=== PATIENT | male | born 1960 | race Caucasian/White ===

== ENCOUNTER 2018-01-29 22:02 | Emergency (ER) | payer OTHER ==
--- NOTE | 2018-01-29 22:24 | EDM.PDOC ---
ED HPI GENERAL MEDICAL PROBLEM - General Chief Complaint: ENT Problem Stated Complaint: [id number] TURKEY BONE STUCK IN THROAT Time Seen by Provider: 01/29/18 22:10 Source of Information: Reports: Patient, RN, RN Notes Reviewed History Limitations: Reports: No Limitations - History of Present Illness INITIAL COMMENTS - FREE TEXT/NARRATIVE: Pt presents to the ER with c/o a turkey bone stuck in his throat. Patient states he was at home eating home made turkey soup when he accidentally swallowed a turkey bone. Patient's head is tilted downward with chin near the chest, reporting this is the most comfortable position for him. He is also spitting in a bag as he cannot swallow his saliva. Onset: Today, Sudden Throat Pain Score (Numeric/FACES): 3 - Related Data Allergies Allergy/AdvReac Type Severity Reaction Status Date / Time seasonal allergies Allergy Mild Itching Uncoded 11/29/15 12:29 Home Meds: Home Meds Insulin Aspart [NovoLOG] 20 units SUBCUT WITHMEALSANDBED 01/29/18 [History] Insulin Lispro [HumaLOG] 15 units SUBCUT WITHMEALSANDBED 01/29/18 [History] Past Medical History Cardiovascular History: Reports: High Cholesterol Respiratory History: Reports: Bronchitis, Recurrent Gastrointestinal History: Reports: Pancreatitis Musculoskeletal History: Reports: Arthritis Endocrine/Metabolic History: Reports: Diabetes, Type II, Vitamin D Deficiency - Infectious Disease History Infectious Disease History: Reports: Chicken Pox, Measles, Mumps - Past Surgical History GI Surgical History: Reports: Cholecystectomy, Colostomy, EGD Social & Family History - Family History Cardiac: Reports: Hypertension, Other (See Below) Other Cardiac Family History: hx family heart disease Respiratory: Reports: COPD Endocrine/Metabolic: Reports: Diabetes, type II Other Endocrine/Metabolic Family History: both mother and father had DM - as well as several aunts/uncles Oncologic: Reports: Other (See Below) Other Oncologic Family History: father had liver cancer / sinus cancer?? - Tobacco Use Smoking Status *Q: Never Smoker Second Hand Smoke Exposure: No - Caffeine Use Caffeine Use: Reports: Coffee - Recreational Drug Use Recreational Drug Use: No ED ROS ENT - Review of Systems Review Of Systems: ROS reveals no pertinent complaints other than HPI. ED EXAM, ENT - Physical Exam Exam: See Below Exam Limited By: No Limitations General Appearance: Alert, WD/WN, Moderate Distress Eye Exam: Bilateral Eye: EOMI, Normal Inspection Ears: Normal External Exam, Hearing Grossly Normal Nose: Normal Inspection Mouth/Throat: Other (unable to inspect due to the position and comfort of the patient. Patient is spitting blood tinged saliva. ) Head: Atraumatic, Normocephalic Neck: Normal Inspection, Limited Range of Motion (Chin to chest position) Respiratory/Chest: Lungs Clear, Normal Breath Sounds, No Accessory Muscle Use, Chest Non-Tender, Respiratory Distress Cardiovascular: Normal Peripheral Pulses, Regular Rate, Rhythm, No Edema, No Gallop, No JVD, No Murmur, No Rub GI/Abdominal: Normal Bowel Sounds, Soft, Non-Tender, No Organomegaly, No Distention, No Abnormal Bruit, No Mass, Pelvis Stable (Male) Exam: Deferred Rectal (Males) Exam: Deferred Back: Normal Inspection, Full Range of Motion Neurological: Alert, Oriented, CN II-XII Intact, Normal Cognition, Normal Gait, Normal Reflexes, No Motor/Sensory Deficits Psychiatric: Anxious Skin: Warm, Dry, Intact, Normal Color, No Rash Lymphatic: No Adenopathy Course - Vital Signs Last Recorded V/S: Last Vital Signs Temp 98.8 F 01/30/18 00:40 Pulse 102 H 01/30/18 00:59 Resp 14 01/30/18 00:59 BP 136/78 01/30/18 00:59 Pulse Ox 96 01/30/18 00:59 - Orders/Labs/Meds Meds: Medications Discontinued Medications Generic Name Dose Route Start Last Admin Trade Name Freq PRN Reason Stop Dose Admin Benzocaine Confirm 01/29/18 23:48 Hurricaine 20% Rea Administered 01/29/18 23:49 Dose 59.2 ml .ROUTE .STK-MED ONE Lactated Ringer's 1,000 mls @ 999 mls/hr 01/29/18 23:28 01/29/18 23:31 Ringers, Lactated IV 01/30/18 00:28 999 mls/hr .BOLUS ONE Administration - Radiology Interpretation Free Text/Narrative:: Chest xray: IMPRESSION: No acute findings. Thank you for allowing us to participate in the care of your patient. Dictated and Authenticated by: Uriel Champagne MD 01/29/2018 10:53 PM Central Time ([place] & [place]) Soft Tissue Neck: IMPRESSION: 2.5 cm increased density in the mid prevertebral soft tissues. Unclear if this represents foreign body or mildly prominent mucosal shadow. Consider CT neck to further evaluate Thank you for allowing us to participate in the care of your patient. Dictated and Authenticated by: Uriel Champagne MD 01/29/2018 10:58 PM Central Time ([place] & [place]) See Rad report - Re-Assessments/Exams Free Text/Narrative Re-Assessment/Exam: 01/29/18 23:01 Dr. Gallardo was consulted for the patient. Dr. Gallardo came in and saw the patient and is taking him for an EGD. 01/30/18 01:[address] Gallardo. Dr. Gallardo feels the patient is stable to be discharged home at this time. Departure - Departure Time of Disposition: 01:05 Disposition: Home, Self-Care 01 Condition: Fair Clinical Impression: Feeling of foreign body in throat - Discharge Information Instructions: Swallowed Foreign Body, Adult, [id number] Forms: ED Department Discharge Additional Instructions: Follow up with your primary care facility
[2018-01-29] MEDS ORDERED: Lactated Ringers 1,000 ML IV ONE (23:28)
[2018-01-29] MEDS ORDERED: Benzocaine 20% Oral Spray 59.2 ML Canister MUCMEM ONE (23:45)
[2018-01-29] MEDS ORDERED: Benzocaine 20% Oral Spray 59.2 ML Canister ONE (23:48)
[2018-01-30 01:13] VITALS: BP 131/69
--- NOTE | 2018-01-30 04:26 | OR ---
DATE: 01/29/2018 PREOPERATIVE DIAGNOSIS: Dysphagia with possible esophageal foreign body. POSTOPERATIVE DIAGNOSIS: Dysphagia with possible esophageal foreign body. PROCEDURE: EGD. ANESTHESIA: MAC. SPECIMEN: None. OPERATIVE FINDINGS: He had a foreign body stuck and it had passed into the stomach. I did not find any evidence of blockage either in the hypopharynx, trachea, or esophagus. RECOMMENDATION: Follow up as needed. INDICATION FOR PROCEDURE: This 57-year-old male presented to the emergency room after complaining of inability to swallow even saliva. He feels like something is caught in the neck region. He was eating some sort of chicken stew and feels like he swallowed a bone. Plain x-ray of the neck and chest did not reveal any calcification within the esophagus or stomach. I observed the patient for a while and he really was unable to swallow saliva and had to spit it out into a bag. The risks, benefits, and expected outcomes of an EGD were discussed with him. DESCRIPTION OF PROCEDURE: After adequate preparation, a gastroscope was inserted into the oral cavity looking around in the posterior oral cavity and hypopharynx. I did not find any evidence of obstructing particles. The scope easily went through the cricopharyngeus into the esophagus and this was passed all the way down to the distal esophagus with no evidence of obstructing foreign body. The scope was advanced through the lower esophageal sphincter into the stomach. Both forward and retroflexed views were done and are normal. The contents of the stomach showed a moderate amount of liquid material consistent with the soup he claimed to be eating. On withdrawal of the scope, a good examination of the esophagus was again done. The patient, however, when the scope got into the hypopharynx area, seemed to go into some laryngeal spasm. The scope was completely withdrawn and Anesthesia monitored him for a while. One more attempt with the scope was done and this was again easily passed through the hypopharynx into the esophagus and no obstructing lesion or mass lesions were noted. The patient was taken to recovery room. [facility] /[id number]
== END 2018-01-30 01:33 | disposition home or self-care (01) ==
LOC: DL.ED 22:02
DX: R09.89 Other specified symptoms and signs involving the circulatory and respiratory systems (principal); E11.9 Type 2 diabetes mellitus without complications; Z91.09 Other allergy status, other than to drugs and biological substances
CPT/HCPCS: 70360; 71046; 96360; 99284; J7120

== ENCOUNTER 2018-06-30 14:05 | Emergency (ER) | payer OTHER ==
[2018-06-30 14:10] VITALS: BP 134/87
--- NOTE | 2018-06-30 15:22 | EDM.PDOC ---
ED HPI GENERAL MEDICAL PROBLEM - General Chief Complaint: Gastrointestinal Problem Stated Complaint: Pancreatitis [id number] Time Seen by Provider: 06/30/18 15:22 Source of Information: Reports: Patient, RN, RN Notes Reviewed History Limitations: Reports: No Limitations - History of Present Illness INITIAL COMMENTS - FREE TEXT/NARRATIVE: Patient presents to ER with complaint of epigastric, abdominal and midline chest pain that began Saturday, June 29. Initially the symptoms were intermittent, but returned yesterday and became severe and persistent throughout most of the day. Today he states the symptoms have been persistent but not as severe. Denies radiating pain, shortness of breath, cough, fevers, or chills, nausea or vomiting. Denies any change in bowel habits or urinary habits. Patient states symptoms are very similar to past pancreatitis. Location: Reports: Chest, Abdomen Quality: Reports: Ache, Burning Severity: Moderate Improves with: Reports: None Worsens with: Reports: None Associated Symptoms: Reports: No Other Symptoms Middle Chest Pain Score (Numeric/FACES): 3 - Related Data Allergies Allergy/AdvReac Type Severity Reaction Status Date / Time seasonal allergies Allergy Mild Itching Uncoded 06/30/18 14:07 Home Meds: Home Meds Insulin Aspart [NovoLOG] 20 units SUBCUT WITHMEALSANDBED 01/29/18 [History] Insulin Lispro [HumaLOG] 15 units SUBCUT WITHMEALSANDBED 01/29/18 [History] Past Medical History HEENT History: Reports: Impaired Vision Cardiovascular History: Reports: High Cholesterol Respiratory History: Reports: Bronchitis, Recurrent Gastrointestinal History: Reports: Pancreatitis Musculoskeletal History: Reports: Arthritis Endocrine/Metabolic History: Reports: Diabetes, Type II, Vitamin D Deficiency - Infectious Disease History Infectious Disease History: Reports: Chicken Pox, Measles, Mumps - Past Surgical History GI Surgical History: Reports: Cholecystectomy, Colostomy, EGD Social & Family History - Family History Family Medical History: Noncontributory Cardiac: Reports: Hypertension, Other (See Below) Other Cardiac Family History: hx family heart disease Respiratory: Reports: COPD Endocrine/Metabolic: Reports: Diabetes, type II Other Endocrine/Metabolic Family History: both mother and father had DM - as well as several aunts/uncles Oncologic: Reports: Other (See Below) Other Oncologic Family History: father had liver cancer / sinus cancer?? - Tobacco Use Smoking Status *Q: Never Smoker - Caffeine Use Caffeine Use: Reports: Coffee, Energy Drinks, Soda, Tea - Recreational Drug Use Recreational Drug Use: No ED ROS GENERAL - Review of Systems Review Of Systems: ROS reveals no pertinent complaints other than HPI. ED EXAM, GI/ABD - Physical Exam Exam: See Below Exam Limited By: No Limitations General Appearance: Alert, WD/WN, No Apparent Distress Eyes: Bilateral: Normal Appearance Nose: Normal Inspection, Normal Mucosa, No Blood Throat/Mouth: Normal Inspection, Normal Lips, Normal Teeth, Normal Gums, Normal Oropharynx, Normal Voice, No Airway Compromise Head: Atraumatic, Normocephalic Neck: Normal Inspection, Supple, Non-Tender, Full Range of Motion Respiratory/Chest: No Respiratory Distress, Lungs Clear, Normal Breath Sounds, No Accessory Muscle Use, Chest Non-Tender Cardiovascular: Normal Peripheral Pulses, Regular Rate, Rhythm, No Edema, No Gallop, No JVD, No Murmur, No Rub GI/Abdominal Exam: Normal Bowel Sounds, Soft, Non-Tender, No Organomegaly, No Distention, No Abnormal Bruit, No Mass, Pelvis Stable (Male) Exam: Deferred Rectal (Males) Exam: Deferred Back Exam: Normal Inspection, Full Range of Motion, NT Extremities: Normal Inspection, Normal Range of Motion, Non-Tender, Normal Capillary Refill, No Pedal Edema Neurological: Alert, Oriented, CN II-XII Intact, Normal Cognition, Normal Gait, Normal Reflexes, No Motor/Sensory Deficits Psychiatric: Normal Affect, Normal Mood Skin Exam: Warm, Dry, Intact, Normal Color, No Rash EKG INTERPRETATION EKG Date: 06/30/18 Time: 14:10 Rhythm: Other (sinus rhythm) Rate (Beats/Min): 78 [place]: LAD-Left [place] Deviation P-Wave: Present QRS: Normal ST-T: Normal QT: Normal Course - Vital Signs Last Recorded V/S: Last Vital Signs Temp 36.2 C 06/30/18 14:08 Pulse 74 06/30/18 14:08 Resp 15 06/30/18 14:08 BP 134/87 06/30/18 14:08 Pulse Ox 100 06/30/18 14:08 - Orders/Labs/Meds Orders: Active Orders 24 hr Category Date Time Status EKG Documentation Completion [RC] URGENT Care 06/30/18 14:15 Active Labs: Laboratory Tests 06/30/18 06/30/1806/30/18 Range/Units 14:18 15:32 15:32 WBC 5.4 (5.0-10.0) 10^3/uL RBC 5.22 (4.6-6.2) 10^6/uL Hgb 15.1 D (14.0-18.0) g/dL Hct 45.1 (40.0-54.0) % MCV 86.4 (80-100) fL MCH 28.9 (27.0-34.0) pg MCHC 33.5 (33.0-35.0) g/dL Plt Count 199 (150-450) 10^3/uL Neut % (Auto) 57.8 (42.2-75.2) % Lymph % (Auto) 31.9 (20.5-50.1) % [place] % (Auto) 8.0 (2-8) % Eos % (Auto) 1.7 (1.0-3.0) % Baso % (Auto) 0.6 (0.0-1.0) % Sodium 134 L (135-145) mmol/L Potassium 4.1 (3.6-5.0) mmol/L Chloride 97 L (101-111) mmol/L Carbon Dioxide 28.0 (21.0-31.0) mmol/L Anion Gap 13.1 BUN 19 H (7-18) mg/dL Creatinine 1.0 (0.6-1.3) mg/dL Est Cr Clr Drug Dosing 76.95 mL/min Estimated GFR (MDRD) > 60 BUN/Creatinine Ratio 19.00 Glucose 189 H (74-105) mg/dL POC Glucose 200 H (70-105) mg/dl Calcium 8.8 (8.4-10.2) mg/dl Total Bilirubin 0.6 (0.2-1.0) mg/dL AST 19 (10-42) IU/L ALT 22 (10-60) IU/L Alkaline Phosphatase 59 (42-121) IU/L Troponin I < 0.02 (0.00-0.02) ng/ml Total Protein 7.7 (6.7-8.2) g/dl Albumin 4.1 (3.2-5.5) g/dl Globulin 3.6 Albumin/Globulin Ratio 1.14 Amylase 29 (28-100) U/L Lipase 22 (22-51) U/L Meds: Medications Discontinued Medications Generic Name Dose Route Start Last Admin Trade Name James PRN Reason Stop Dose Admin Al Hydroxide/Mg Hydroxide 30 ml 06/30/18 16:07 06/30/18 16:18 Gi Cocktail PO 06/30/18 16:08 30 ml ONETIME ONE Administration - Re-Assessments/Exams Free Text/Narrative Re-Assessment/Exam: 06/30/18 17:23 Patient had improvement of is symptoms after GI cocktail. Departure - Departure Time of Disposition: 17:23 Disposition: Home, Self-Care 01 Condition: Good Clinical Impression: Abdominal pain, Esophagitis - Discharge Information *PRESCRIPTION DRUG MONITORING PROGRAM REVIEWED*: Not Applicable *COPY OF PRESCRIPTION DRUG MONITORING REPORT IN PATIENT YASMANI: Not Applicable Instructions: Abdominal Pain, Adult, Xone-ca-[id number], Esophagitis Forms: ED Department Discharge Additional Instructions: Rx: Ranitidine 150mg Follow up in clinic in the next 1 week for recheck. - My Orders Last 24 Hours: My Active Orders 06/30/18 14:15 EKG Documentation Completion [RC] URGENT - Assessment/Plan Last 24 Hours: My Active Orders 06/30/18 14:15 EKG Documentation Completion [RC] URGENT
[2018-06-30 16:01] LABS: ANION GAP 13.1; CHLORIDE,CL 97 mmol/L (101-111); SODIUM,NA 134 mmol/L (135-145)
[2018-06-30] MEDS ORDERED: GI Cocktail Oral Solution 30 ML PO ONE (16:07)
== END 2018-06-30 17:38 | disposition home or self-care (01) ==
LOC: DL.ED 14:05
DX: R10.13 Epigastric pain (principal); E11.9 Type 2 diabetes mellitus without complications; Z79.4 Long term (current) use of insulin; Z91.09 Other allergy status, other than to drugs and biological substances
CPT/HCPCS: 36415; 80053; 82150; 82962; 83690; 84484; 85025; 93005; 93010; 99285; A9270

== ENCOUNTER 2020-03-14 15:34 | Emergency (ER) | payer OTHER ==
[2020-03-14 16:02] VITALS: BP 159/97; PULSE 72
--- NOTE | 2020-03-14 17:17 | EDM.PDOC ---
Scribed by Lauren Betts 03/14/20 [id number] for Gerri Hopkins NP ED HPI GENERAL MEDICAL PROBLEM - General Chief Complaint: Upper Extremity Injury/Pain Stated Complaint: right shoulder pain Time Seen by Provider: 03/14/20 16:10 Source of Information: Reports: Patient, RN, RN Notes Reviewed History Limitations: Reports: No Limitations - History of Present Illness INITIAL COMMENTS - FREE TEXT/NARRATIVE: Patient presents to ER with complaint of right shoulder pain for 1-1/2 weeks. He does a lot of lifting at his work. No specific incident that remembers injuring it. States most pain when lifting above his head. Denies numbness or tingling to arm or hand. Onset: Gradual Duration: Getting Worse Location: Reports: Upper Extremity, Right Quality: Reports: Ache Severity: Moderate Improves with: Reports: None Worsens with: Reports: None Associated Symptoms: Reports: No Other Symptoms - Related Data Allergies Allergy/AdvReac Type Severity Reaction Status Date / Time seasonal allergies Allergy Mild Itching Uncoded 03/14/20 15:58 Home Meds: Home Meds Insulin Aspart [NovoLOG] 34 units SUBCUT WITHMEALSANDBED 01/29/18 [History] Insulin Lispro [HumaLOG] 20 units SUBCUT WITHMEALSANDBED 01/29/18 [History] Past Medical History HEENT History: Reports: Impaired Vision Cardiovascular History: Reports: High Cholesterol Respiratory History: Reports: Bronchitis, Recurrent Gastrointestinal History: Reports: Pancreatitis Musculoskeletal History: Reports: Arthritis Endocrine/Metabolic History: Reports: Diabetes, Type II, Vitamin D Deficiency - Infectious Disease History Infectious Disease History: Reports: Chicken Pox, Measles, Mumps - Past Surgical History GI Surgical History: Reports: Cholecystectomy, Colostomy, EGD Social & Family History - Family History Family Medical History: Noncontributory Cardiac: Reports: Hypertension, Other (See Below) Other Cardiac Family History: hx family heart disease Respiratory: Reports: COPD Endocrine/Metabolic: Reports: Diabetes, type II Other Endocrine/Metabolic Family History: both mother and father had DM - as well as several aunts/uncles Oncologic: Reports: Other (See Below) Other Oncologic Family History: father had liver cancer / sinus cancer?? - Caffeine Use Caffeine Use: Reports: Coffee, Energy Drinks, Soda, Tea Review of Systems - Review of Systems Review Of Systems: Comprehensive ROS is negative, except as noted in HPI. ED EXAM, GENERAL - Physical Exam Exam: See Below Exam Limited By: No Limitations General Appearance: Alert, WD/WN, No Apparent Distress Eye Exam: Bilateral Eye: EOMI, Normal Inspection, PERRL Ears: Normal External Exam, Normal Canal, Hearing Grossly Normal, Normal TMs Nose: Normal Inspection, Normal Mucosa, No Blood Throat/Mouth: Normal Inspection, Normal Lips, Normal Teeth, Normal Gums, Normal Oropharynx, Normal Voice, No Airway Compromise Head: Atraumatic, Normocephalic Neck: Normal Inspection, Supple, Non-Tender, Full Range of Motion Respiratory/Chest: No Respiratory Distress, Lungs Clear, Normal Breath Sounds, No Accessory Muscle Use, Chest Non-Tender Cardiovascular: Normal Peripheral Pulses, Regular Rate, Rhythm, No Edema, No Gallop, No JVD, No Murmur, No Rub GI/Abdominal: Normal Bowel Sounds, Soft, Non-Tender, No Organomegaly, No Distention, No Abnormal Bruit, No Mass (Male) Exam: Deferred Rectal (Males) Exam: Deferred Back Exam: Normal Inspection, Full Range of Motion, NT Extremities: Other (decreased range of motion right shoulder) Neurological: Alert, Oriented, CN II-XII Intact, Normal Cognition, Normal Gait, Normal Reflexes, No Motor/Sensory Deficits Psychiatric: Normal Affect, Normal Mood Skin Exam: Warm, Dry, Intact, Normal Color, No Rash Lymphatic: No Adenopathy Course - Vital Signs Last Recorded V/S: Last Vital Signs Temp 97.7 F 03/14/20 15:59 Pulse 72 03/14/20 15:59 Resp 16 03/14/20 15:59 BP 159/97 H 03/14/20 15:59 Pulse Ox 99 03/14/20 15:59 - Orders/Labs/Meds Orders: Active Orders 24 hr Category Date Time Status Shoulder Comp Rt [CR] Urgent Exams 03/14/20 16:18 Taken - Radiology Interpretation Free Text/Narrative:: Right shoulder xray: FINDINGS: Bones/joints: Normal anatomic alignment and bone density. No acutely displaced fracture or dislocation. Minimal degenerative changes at the acromioclavicular joint. No aggressive osseous lesions. Soft tissues: No acute soft tissue findings. Other findings: Visualized chest appears unremarkable. IMPRESSION: No acute skeletal pathology. Thank you for allowing us to participate in the care of your patient. Dictated and Authenticated by: Jonathon Martins MD 03/14/2020 4:37 PM Central Time ([place] & [place]) See rad report Departure - Departure Time of Disposition: 16:39 Disposition: Home, Self-Care 01 Condition: Good Clinical Impression: Right shoulder pain Qualifiers: Chronicity: acute Qualified Code(s): M25.511 - Pain in right shoulder - Discharge Information *PRESCRIPTION DRUG MONITORING PROGRAM REVIEWED*: No *COPY OF PRESCRIPTION DRUG MONITORING REPORT IN PATIENT YASMANI: No Instructions: Shoulder Pain, [id number], Heat Therapy, Uzoi-[id number], How to Use Cold Therapy, [id number] Forms: ED Department Discharge Additional Instructions: May alternate heat and ice May use Tylenol and/or Aleve OR Ibuprofen as directed for pain Follow up with your primary care facility Lifting limit of 10-15 lbs No lifting above your head Sepsis Event Note - Focused Exam Vital Signs: Vital Signs Temp Pulse Resp BP Pulse Ox 03/14/20 15:59 97.7 F 72 16 159/97 H 99 Date Exam was Performed: 03/14/20 Time Exam was Performed: 16:39 - My Orders Last 24 Hours: My Active Orders 03/14/20 16:18 Shoulder Comp Rt [CR] Urgent - Assessment/Plan Last 24 Hours: My Active Orders 03/14/20 16:18 Shoulder Comp Rt [CR] Urgent I have read and agree with the documentation that has been completed regarding this visit. By signing this record, I attest that the documentation was completed in my physical presence and is an accurate record of the encounter.
== END 2020-03-14 16:46 | disposition home or self-care (01) ==
LOC: DL.ED 15:34
DX: M25.511 Pain in right shoulder (principal); E11.9 Type 2 diabetes mellitus without complications; Z91.048 Other nonmedicinal substance allergy status; Z79.4 Long term (current) use of insulin
CPT/HCPCS: 73030-RT; 99283

== ENCOUNTER 2020-06-16 21:27 | Emergency (ER) | payer OTHER ==
[2020-06-16] MEDS ORDERED: GI Cocktail Oral Solution 30 ML PO ONE (21:37)
--- NOTE | 2020-06-16 21:45 | EDM.PDOC ---
ED HPI GENERAL MEDICAL PROBLEM - General Chief Complaint: Chest Pain Stated Complaint: CHEST PAIN Time Seen by Provider: 06/16/20 21:43 Source of Information: Reports: Patient History Limitations: Reports: No Limitations - History of Present Illness INITIAL COMMENTS - FREE TEXT/NARRATIVE: sharp constant low chest epiG pain with N/V/D had same before 1st time from DM 2nd time from GB and had GB surgery andno problem till today. been eating lot of snacks all day. Epigastric Pain Score (Numeric/FACES): 10 - Related Data Allergies Allergy/AdvReac Type Severity Reaction Status Date / Time seasonal allergies Allergy Mild Itching Uncoded 06/16/20 21:42 Home Meds: Home Meds Insulin Lispro [HumaLOG] 20 units SUBCUT WITHMEALSANDBED 01/29/18 [History] Dulaglutide [Trulicity] 0.75 mg SQ WEEKLY 06/16/20 [History] Insulin Glarg,Human.Rec.Analog [Lantus] 34 units SQ DAILY 06/16/20 [History] Past Medical History HEENT History: Reports: Impaired Vision Cardiovascular History: Reports: High Cholesterol Respiratory History: Reports: Bronchitis, Recurrent Gastrointestinal History: Reports: Pancreatitis Genitourinary History: Reports: None Musculoskeletal History: Reports: Arthritis Neurological History: Reports: None Psychiatric History: Reports: None Endocrine/Metabolic History: Reports: Diabetes, Type II, Vitamin D Deficiency Hematologic History: Reports: None Immunologic History: Reports: None Oncologic (Cancer) History: Reports: None Dermatologic History: Reports: None - Infectious Disease History Infectious Disease History: Reports: Chicken Pox, Measles, Mumps - Past Surgical History GI Surgical History: Reports: Cholecystectomy, Colostomy, EGD Social & Family History - Family History Family Medical History: Noncontributory Cardiac: Reports: Hypertension, Other (See Below) Other Cardiac Family History: hx family heart disease Respiratory: Reports: COPD Endocrine/Metabolic: Reports: Diabetes, type II Other Endocrine/Metabolic Family History: both mother and father had DM - as well as several aunts/uncles Oncologic: Reports: Other (See Below) Other Oncologic Family History: father had liver cancer / sinus cancer?? - Caffeine Use Caffeine Use: Reports: Coffee, Energy Drinks, Soda, Tea ED ROS GENERAL - Review of Systems Review Of Systems: Comprehensive ROS is negative, except as noted in HPI. ED EXAM, GI/ABD - Physical Exam Exam: See Below Exam Limited By: No Limitations General Appearance: Alert, WD/WN, Mild Distress. No: Active Emesis Ears: Hearing Grossly Normal Throat/Mouth: Normal Voice, No Airway Compromise Head: Atraumatic Neck: Non-Tender, Full Range of Motion Respiratory/Chest: No Respiratory Distress Cardiovascular: Regular Rate, Rhythm GI/Abdominal Exam: Guarding, Tender, Other (epig region). No: Distended, Rigid, Rebound Neurological: Alert, Oriented, Normal Cognition, Normal Gait, No Motor/Sensory Deficits Psychiatric: Flat Affect Skin Exam: Warm, Dry, Normal Color Lymphatic: No Adenopathy Course - Vital Signs Last Recorded V/S: Last Vital Signs Temp 36.4 C 06/16/20 23:07 Pulse 65 06/16/20 23:07 Resp 15 06/16/20 23:07 BP 129/77 06/16/20 23:07 Pulse Ox 100 06/16/20 23:07 - Orders/Labs/Meds Orders: Active Orders 24 hr Category Date Time Status EKG 12 Lead [EKG Documentation Completion] [RC] STAT Care 06/16/20 21:34 Active Labs: Laboratory Tests 06/16/20 06/16/20 Range/Units 21:36 21:36 WBC 5.6 (5.0-10.0) 10^3/uL RBC 4.88 (4.6-6.2) 10^6/uL Hgb 14.7 (14.0-18.0) g/dL Hct 42.3 (40.0-54.0) % MCV 86.7 (80-100) fL MCH 30.1 (27.0-34.0) pg MCHC 34.8 (33.0-35.0) g/dL Plt Count 213 (150-450) 10^3/uL Neut % (Auto) 60.0 (42.2-75.2) % Lymph % (Auto) 28.0 (20.5-50.1) % [place] % (Auto) 9.0 H (2-8) % Eos % (Auto) 2.5 (1.0-3.0) % Baso % (Auto) 0.5 (0.0-1.0) % Sodium 139 (136-145) mmol/L Potassium 3.8 (3.5-5.1) mmol/L Chloride 101 (98-107) mmol/L Carbon Dioxide 27 (21-32) mmol/L Anion Gap 14.8 H (7-13) mEq/L BUN 17 (7-18) mg/dL Creatinine 1.04 (0.70-1.30) mg/dL Est Cr Clr Drug Dosing 72.16 mL/min Estimated GFR (MDRD) > 60 BUN/Creatinine Ratio 16.3 (No establ ref range) Glucose 160 H (74-99) mg/dL Calcium 8.2 L (8.5-10.1) mg/dL Total Bilirubin 0.3 (0.2-1.0) mg/dL AST 18 (15-37) U/L ALT 32 (16-63) U/L Alkaline Phosphatase 68 (46-116) U/L Troponin I < 0.017 (0.000-0.056) ng/mL Total Protein 7.4 (6.4-8.2) g/dL Albumin 3.8 (3.4-5.0) g/dL Globulin 3.6 Albumin/Globulin Ratio 1.1 Amylase 36 (25-115) U/L Lipase 149 (73-393) U/L Ethyl Alcohol 33 (0) mg/dL Meds: Medications Discontinued Medications Generic Name Dose Route Start Last Admin Trade Name Freq PRN Reason Stop Dose Admin Al Hydroxide/Mg Hydroxide 30 ml 06/16/20 21:37 06/16/20 21:43 Gi Cocktail PO 06/16/20 21:38 30 ml ONETIME ONE Administration Fentanyl 100 mcg 06/16/20 22:02 06/16/20 22:06 Sublimaze IVPUSH 06/16/20 22:03 100 mcg ONETIME ONE Administration Iopamidol 100 ml 06/16/20 22:12 06/16/20 22:38 Isovue-300 (61%) IVPUSH 06/16/20 22:13 100 ml ONETIME ONE Administration - Re-Assessments/Exams Free Text/Narrative Re-Assessment/Exam: 06/16/20 23:43 results discussed with pt Departure - Departure Time of Disposition: 23:43 Disposition: Home, Self-Care 01 Condition: Good Clinical Impression: Abdominal pain Qualifiers: Abdominal location: epigastric Qualified Code(s): R10.13 - Epigastric pain - Discharge Information Instructions: Abdominal Pain, Adult, [id number] Forms: ED Department Discharge Additional Instructions: 1) avoid solid foods next 48 hours 2) follow up at clinic Sepsis Event Note (ED) - Evaluation Sepsis Screening Result: No Definite Risk - Focused Exam Vital Signs: Vital Signs Temp Pulse Resp BP BP Pulse Ox 06/16/20 23:07 36.4 C 65 15 129/77 100 06/16/20 22:18 70 12 107/60 88 L 06/16/20 21:32 36.8 C 78 18 161/85 H 100 - My Orders Last 24 Hours: My Active Orders 06/16/20 21:34 EKG 12 Lead [EKG Documentation Completion] [RC] STAT - Assessment/Plan Last 24 Hours: My Active Orders 06/16/20 21:34 EKG 12 Lead [EKG Documentation Completion] [RC] STAT
[2020-06-16] MEDS ORDERED: fentaNYL 100 MCG/2 ML SDV IVPUSH ONE (22:02)
[2020-06-16 22:09] LABS: ANION GAP 14.8 mEq/L (7-13); CHLORIDE,CL 101 mmol/L (98-107); SODIUM,NA 139 mmol/L (136-145)
[2020-06-16] MEDS ORDERED: Iopamidol 612 MG/ML 100 ML Bottle IVPUSH ONE (22:12)
[2020-06-16 23:08] VITALS: BP 129/77; PULSE 65
--- NOTE | 2020-06-16 23:22 | CT ---
PROCEDURE INFORMATION: Exam: CT Abdomen And Pelvis With Contrast Exam date and time: 06/16/2020 10:52 PM Age: 59 years old Clinical indication: Other: Upper abd pain; Additional info: Pain h/o pancreatitis TECHNIQUE: Imaging protocol: Computed tomography of the abdomen and pelvis with intravenous contrast. Radiation optimization: All CT scans at this facility use at least one of these dose optimization techniques: automated exposure control; mA and/or kV adjustment per patient size (includes targeted exams where dose is matched to clinical indication); or iterative reconstruction. Contrast material: [id number]; Contrast volume: 100 ml; Contrast route: INTRAVENOUS (IV); COMPARISON: No relevant prior studies available. FINDINGS: Liver: Normal in architecture. No suspicious hepatic mass. Gallbladder and bile ducts: The gallbladder is surgically absent. Pancreas: Normal parenchymal bulk and the gland is sharply marginated. No local inflammation and ductal dilatation. No organized fluid collection, mass, or calcification. Spleen: The spleen is normal in size. No splenic mass or abnormal fluid collection. Adrenals: There are no suspicious adrenal masses. Kidneys and ureters: Normal in parenchymal bulk. No hydronephrosis or asymmetric perinephric stranding. No solid masses. No stones. Two small lucent nodules, 1 with a in each kidney. The larger is on the left nearly 2 cm in diameter. These are both incidental, probably cortical cysts. According to guidelines, they require no further workup. Stomach and bowel: No significant abnormalities of the stomach. There are no dilated or thickened small bowel loops. Gas and stool are seen in the colon to the rectum. No mass. There are multiple colonic diverticula, concentrated primarily distally. Appendix: There is no evidence for appendicitis. Intraperitoneal space: No pneumoperitoneum, ascites, mass or stranding of fat. Vasculature: There are atherosclerotic calcifications inclusive of the coronary arteries. Lymph nodes: No enlarged lymph nodes. Bladder: No bladder wall thickening, mass or luminal calculus. Reproductive: Prostate gland is normal in size. The seminal vesicles are unremarkable. Bones/joints: Age appropriate. No acute fracture. No dislocation. There are no suspicious lytic or osteosclerotic lesions. Soft tissues: No suspicious soft tissue masses, soft tissue gas of significance, or hernia. Other findings: Very low density within wall of a portion of the intestines, consistent with chronic, burnt out Crohn disease. IMPRESSION: No sign of acute intra-abdominal pathology.
== END 2020-06-16 23:53 | disposition home or self-care (01) ==
LOC: DL.ED 21:27
DX: R10.13 Epigastric pain (principal); E11.9 Type 2 diabetes mellitus without complications; Z79.4 Long term (current) use of insulin
CPT/HCPCS: 36415; 74177; 80053; 80307; 82150; 83690; 84484; 85025; 93005; 99285; A9270; J3010; Q9967; 96374

== ENCOUNTER 2020-07-23 12:17 | Emergency (ER) | payer OTHER ==
--- NOTE | 2020-07-23 12:33 | EDM.PDOC ---
ED HPI GENERAL MEDICAL PROBLEM - General Chief Complaint: Respiratory Problem Stated Complaint: RESPITORY DISTRESS Time Seen by Provider: 07/23/20 12:32 Source of Information: Reports: Patient, Old Records, RN, RN Notes Reviewed History Limitations: Reports: No Limitations - History of Present Illness INITIAL COMMENTS - FREE TEXT/NARRATIVE: Pt presents to ER from home by POV with c/o several days of worsening fever, cough, runny nose, loss of taste and smell, and generalized body ache, and chest wall pain with coughing. Pt denies abdominal pain, N/V/D, rash, any other sympto ms. Hx of IDDM Type 2. Onset: Gradual Duration: Day(s): (2-3), Constant, Getting Worse Location: Reports: Chest, Generalized Quality: Reports: Ache Severity: Severe Improves with: Reports: Rest Worsens with: Reports: Breathing (and Coughing) Context: Reports: Sick Contact (suspected) Associated Symptoms: Reports: No Other Symptoms - Related Data Allergies Allergy/AdvReac Type Severity Reaction Status Date / Time seasonal allergies Allergy Mild Itching Uncoded 06/16/20 21:42 Home Meds: Home Meds Insulin Lispro [HumaLOG] 20 units SUBCUT WITHMEALSANDBED 01/29/18 [History] Dulaglutide [Trulicity] 0.75 mg SQ WEEKLY 06/16/20 [History] Insulin Glarg,Human.Rec.Analog [Lantus] 34 units SQ DAILY 06/16/20 [History] Past Medical History HEENT History: Reports: Impaired Vision Cardiovascular History: Reports: High Cholesterol Respiratory History: Reports: Bronchitis, Recurrent Gastrointestinal History: Reports: Pancreatitis Genitourinary History: Reports: None Musculoskeletal History: Reports: Arthritis Neurological History: Reports: None Psychiatric History: Reports: None Endocrine/Metabolic History: Reports: Diabetes, Type II, IDDM, Vitamin D Deficiency Hematologic History: Reports: None Immunologic History: Reports: None Oncologic (Cancer) History: Reports: None Dermatologic History: Reports: None - Infectious Disease History Infectious Disease History: Reports: Chicken Pox, Measles, Mumps - Past Surgical History GI Surgical History: Reports: Cholecystectomy, Colostomy, EGD Social & Family History - Family History Family Medical History: Noncontributory Cardiac: Reports: Hypertension, Other (See Below) Other Cardiac Family History: hx family heart disease Respiratory: Reports: COPD Endocrine/Metabolic: Reports: Diabetes, type II Other Endocrine/Metabolic Family History: both mother and father had DM - as well as several aunts/uncles Oncologic: Reports: Other (See Below) Other Oncologic Family History: father had liver cancer / sinus cancer?? - Caffeine Use Caffeine Use: Reports: Coffee, Energy Drinks, Soda, Tea - Living Situation & Occupation Living situation: Reports: , with Spouse Occupation: Employed ED ROS GENERAL - Review of Systems Review Of Systems: Comprehensive ROS is negative, except as noted in HPI. ED EXAM, GENERAL - Physical Exam Exam: See Below Exam Limited By: No Limitations General Appearance: Alert, WD/WN, No Apparent Distress, Other (Acutely ill but nontoxic appearing.) Eye Exam: Bilateral Eye: Normal Inspection Ears: Hearing Grossly Normal Nose: Normal Mucosa, No Blood, Nasal Drainage (small amt. clear) Throat/Mouth: Normal Lips, Normal Voice, No Airway Compromise Head: Atraumatic, Normocephalic Neck: Normal Inspection, Supple, Non-Tender, Full Range of Motion Respiratory/Chest: No Respiratory Distress, Lungs Clear, No Accessory Muscle Use, Other (Dry cough. Chest wall tender to firm palpation. Subjectively short of breath, with oxygen saturation 95% on room air.). No: Crackles, Rales, Rhonchi, Wheezing, Stridor Cardiovascular: Regular Rate, Rhythm, No Edema. No: Tachycardia GI/Abdominal: Normal Bowel Sounds, Soft, Non-Tender, No Organomegaly, No Distent ion, No Abnormal Bruit, No Mass Back Exam: Normal Inspection Extremities: Normal Inspection, Normal Range of Motion, Non-Tender, Normal Capillary Refill, No Pedal Edema Neurological: Alert, Oriented, CN II-XII Intact, Normal Cognition, Normal Gait, No Motor/Sensory Deficits Psychiatric: Normal Affect, Normal Mood Skin Exam: Warm, Dry, Intact, Normal Color, No Rash Course - Vital Signs Last Recorded V/S: Last Vital Signs Temp 99.1 F 07/23/20 12:36 Pulse 88 07/23/20 12:36 Resp 20 07/23/20 12:36 BP 139/92 H 07/23/20 12:36 Pulse Ox 95 07/23/20 12:36 - Orders/Labs/Meds Orders: Active Orders 24 hr Category Date Time Status Peripheral IV Care [RC] . DIRECTED Care 07/23/20 13:23 Active RT Post Treatment Assessment [RC] Click to Edit Care 07/23/20 13:26 Active RT Pre-Treatment Assessment [RC] Click to Edit Care 07/23/20 13:26 Active CULTURE STREP A CONFIRMATION [] Stat Lab 07/23/20 12:30 Results STREP SCRN A RAPID W CULT CONF [] Stat Lab 07/23/20 12:30 Results Ondansetron [Zofran] Med 07/23/20 13:44 Once 4 mg IV ONETIME ONE Sodium Chloride 0.9% [Saline Flush] Med 07/23/20 13:23 Active 10 ml FLUSH ASDIRECTED PRN Isolation [COMM] Routine Oth 07/23/20 12:34 Active Peripheral IV Insertion Adult [OM.PC] Stat Oth 07/23/20 13:23 Ordered Medication Orders Sodium Chloride (Saline Flush) 10 ml FLUSH ASDIRECTED PRN PRN Reason: Keep Vein Open Labs: Laboratory Tests 07/23/20 07/23/20 07/23/20 Range/Units 12:30 12:48 12:48 WBC 4.9 L (5.0-10.0) 10^3/uL RBC 4.67 (4.6-6.2) 10^6/uL Hgb 13.9 L (14.0-18.0) g/dL Hct 40.7 (40.0-54.0) % MCV 87.2 (80-100) fL MCH 29.8 (27.0-34.0) pg MCHC 34.2 (33.0-35.0) g/dL Plt Count 175 (150-450) 10^3/uL Neut % (Auto) 70.3 (42.2-75.2) % Lymph % (Auto) 18.6 L (20.5-50.1) % [place] % (Auto) 10.7 H (2-8) % Eos % (Auto) 0.4 L (1.0-3.0) % Baso % (Auto) 0.0 (0.0-1.0) % PT 9.7 (9.0-12.0) SEC INR 1.0 (0.9-1.2) APTT 26.5 (22.0-34.0) SEC D-Dimer, Quantitative 607 H (0-400) ng/mL Sodium (136-145) mmol/L Potassium (3.5-5.1) mmol/L Chloride (98-107) mmol/L Carbon Dioxide (21-32) mmol/L Anion Gap (7-13) mEq/L BUN (7-18) mg/dL Creatinine (0.70-1.30) mg/dL Est Cr Clr Drug Dosing Estimated GFR (MDRD) BUN/Creatinine Ratio (No establ ref range) Glucose (74-99) mg/dL Lactic Acid (0.4-2.0) mmol/L Calcium (8.5-10.1) mg/dL Ferritin (26-388) mg/mL Total Bilirubin (0.2-1.0) mg/dL AST (15-37) U/L ALT (16-63) U/L Alkaline Phosphatase (46-116) U/L Lactate Dehydrogenase (85-227) U/L Troponin I (0.000-0.056) ng/mL C-Reactive Protein (0.0-0.9) mg/dL B-Natriuretic Peptide (0-100) pg/ml Total Protein (6.4-8.2) g/dL Albumin (3.4-5.0) g/dL Globulin Albumin/Globulin Ratio SARS CoV-2 RNA Rapid SANDIE Positive H (NEGATIVE) 07/23/20 07/23/20 07/23/20 Range/Units 12:48 12:48 12:48 WBC (5.0-10.0) 10^3/uL RBC (4.6-6.2) 10^6/uL Hgb (14.0-18.0) g/dL Hct (40.0-54.0) % MCV (80-100) fL MCH (27.0-34.0) pg MCHC (33.0-35.0) g/dL Plt Count (150-450) 10^3/uL Neut % (Auto) (42.2-75.2) % Lymph % (Auto) (20.5-50.1) % [place] % (Auto) (2-8) % Eos % (Auto) (1.0-3.0) % Baso % (Auto) (0.0-1.0) % PT (9.0-12.0) SEC INR (0.9-1.2) APTT (22.0-34.0) SEC D-Dimer, Quantitative (0-400) ng/mL Sodium 140 (136-145) mmol/L Potassium 4.2 (3.5-5.1) mmol/L Chloride 101 (98-107) mmol/L Carbon Dioxide 30 (21-32) mmol/L Anion Gap 13.2 H (7-13) mEq/L BUN 13 (7-18) mg/dL Creatinine 0.99 (0.70-1.30) mg/dL Est Cr Clr Drug Dosing TNP Estimated GFR (MDRD) > 60 BUN/Creatinine Ratio 13.1 (No establ ref range) Glucose 267 H (74-99) mg/dL Lactic Acid 1.6 (0.4-2.0) mmol/L Calcium 8.6 (8.5-10.1) mg/dL Ferritin 398 H (26-388) mg/mL Total Bilirubin 0.6 (0.2-1.0) mg/dL AST 21 (15-37) U/L ALT 26 (16-63) U/L Alkaline Phosphatase 66 (46-116) U/L Lactate Dehydrogenase 204 (85-227) U/L Troponin I < 0.017 (0.000-0.056) ng/mL C-Reactive Protein 11.3 H (0.0-0.9) mg/dL B-Natriuretic Peptide 24 (0-100) pg/ml Total Protein 7.5 (6.4-8.2) g/dL Albumin 3.2 L (3.4-5.0) g/dL Globulin 4.3 Albumin/Globulin Ratio 0.74 SARS CoV-2 RNA Rapid SANDIE (NEGATIVE) Rapid Strep: negative Influenza A/B: negative Meds: Medications Generic Name Dose Route Start Last Admin Trade Name Freq PRN Reason Stop Dose Admin Sodium Chloride 10 ml 07/23/20 13:23 Saline Flush FLUSH ASDIRECTED PRN Keep Vein Open Discontinued Medications Generic Name Dose Route Start Last Admin Trade Name Freq PRN Reason Stop Dose Admin Albuterol 6.7 gm 07/23/20 13:24 Proventil Hfa INH 07/23/20 13:25 ONETIME ONE Benzonatate 200 mg 07/23/20 13:24 Tessalon Perles PO 07/23/20 13:25 ONETIME ONE Dexamethasone 6 mg 07/23/20 13:23 Dexamethasone IVPUSH 07/23/20 13:24 ONETIME ONE Promethazine HCl/Codeine 10 ml 07/23/20 13:24 Phenergan With Codeine PO 07/23/20 13:25 ONETIME ONE - Radiology Interpretation Free Text/Narrative:: [facility] [place] [facility] Final Radiology Report Call: [phone] assistance Online chat: [email or web address] Name: HEATHER ROB Age: 59Years M Date: 07/23/2020 SSN: -- : 1960 Study: CR CHEST 1V FRONTAL Requesting Physician: JANKI SOSA Images: 1 Addl Studies: Provided Clinical History: fever, cough, dyspnea, COVID positive Contrast: Contrast Medium: Contrast Amount: Contrast Method: CONFIDENTIALITY STATEMENT This report is intended only for use by the referring physician, and only in accordance with law. If you received this in error, call [phone]. Page 1 of 1 PROCEDURE INFORMATION: Exam: XR Chest, 1 View Exam date and time: 07/23/2020 1:28 PM Age: 59 years old Clinical indication: Cough and dyspnea and fever; Additional info: Fever, cough, dyspnea, covid positive TECHNIQUE: Imaging protocol: XR of the chest Views: 1 view. COMPARISON: CR Chest 2V 01/29/2018 10:20 PM FINDINGS: Lungs: There is some peripheral airspace opacity in the left mid to lower lung zone as well as patchy density in the right lower lobe. Given the patient's known COVID-19 positivity, this could represent COVID-19 pneumonia. There is no pulmonary edema. Pleural space: There is no pleural effusion or pneumothorax. Heart/Mediastinum: Unremarkable. No cardiomegaly. Bones/joints: Unremarkable. IMPRESSION: Patchy airspace density in both lungs. Findings could represent early COVID-19 pneumonia. Thank you for allowing us to participate in the care of your patient. Dictated and Authenticated by: Victoriano Albarado MD 07/23/2020 1:40 PM Central Time ([place] & [place]) - Re-Assessments/Exams Free Text/Narrative Re-Assessment/Exam: 07/23/20 13:45 Pt is a 59yr old male with single comorbidity of IDDM Type 2 with COVID+ lower resp. infection. Given consideration of his lab results, Hx, exam, and oxygen saturations remaining 94% to 99% throughout his ER stay, I find that he is appropriate for COVID management at home with supportive care, including Decadron, Xarelto 10mg daily (for 4 weeks), antitussives, and Zofran. Pt is instructed to call 911 if he feels worse at any time. Departure - Departure Time of Disposition: 13:49 Disposition: Home, Self-Care 01 Condition: Good Clinical Impression: COVID-19 virus infection - Discharge Information *PRESCRIPTION DRUG MONITORING PROGRAM REVIEWED*: Not Applicable *COPY OF PRESCRIPTION DRUG MONITORING REPORT IN PATIENT YASMANI: Not Applicable Instructions: COVID-19, COVID-19 Frequently Asked Questions, Prevent the Spread of COVID-19 if You Are Sick - [facility] [place] 2] Forms: ED Department Discharge Additional Instructions: Rx: Dexadron (Dexamethasone) 4mg for 7 days - steroid to protect lungs against COVID inflammation. May cause high blood sugar, call your doctor if sugars are over 400. Rx: Xarelto 10mg for 28 days- blood thinner to prevent COVID related blood clots. Discontinue and call your doctor if you develop any bleeding, black or tarry stools, or unusual bruising. Rx: Zofran 4mg - as needed for nausea. Rx: Tessalon Perles 200mg - as needed for cough. Rx: Promethazine Codeine Syrup - as needed for cough, nausea, or pain from coughing. Use the Albuterol inhaler sent home with you: 2 puffs every 4 hours as needed. Use your diabetic medications/insulin as prescribed. Eat 3 meals daily even if you have no appetite. May use over the counter Vitamin D 4000IU daily for 2 weeks, and Zinc 50mg daily for 2 weeks if you wish to. Call 911 if you feel that you are having worsening shortness of breath. Sepsis Event Note (ED) - Focused Exam Vital Signs: Vital Signs Temp Pulse Resp BP Pulse Ox 07/23/20 12:36 99.1 F 88 20 139/92 H 95 - My Orders Last 24 Hours: My Active Orders 07/23/20 12:30 CULTURE STREP A CONFIRMATION [RM] Stat STREP SCRN A RAPID W CULT CONF [RM] Stat 07/23/20 12:34 Isolation [COMM] Routine 07/23/20 13:23 Peripheral IV Care [RC] . DIRECTED Sodium Chloride 0.9% [Saline Flush] 10 ml FLUSH ASDIRECTED PRN Peripheral IV Insertion Adult [OM.PC] Stat 07/23/20 13:26 RT Post Treatment Assessment [RC] Click to Edit RT Pre-Treatment Assessment [RC] Click to Edit 07/23/20 13:44 Ondansetron [Zofran] 4 mg IV ONETIME ONE - Assessment/Plan Last 24 Hours: My Active Orders 07/23/20 12:30 CULTURE STREP A CONFIRMATION [RM] Stat STREP SCRN A RAPID W CULT CONF [RM] Stat 07/23/20 12:34 Isolation [COMM] Routine 07/23/20 13:23 Peripheral IV Care [RC] . DIRECTED Sodium Chloride 0.9% [Saline Flush] 10 ml FLUSH ASDIRECTED PRN Peripheral IV Insertion Adult [OM.PC] Stat 07/23/20 13:26 RT Post Treatment Assessment [RC] Click to Edit RT Pre-Treatment Assessment [RC] Click to Edit 07/23/20 13:44 Ondansetron [Zofran] 4 mg IV ONETIME ONE
[2020-07-23 13:19] LABS: PTT,PARTIAL THROMBOPLSTIN TIME 26.5 SEC (22.0-34.0)
[2020-07-23 13:23] LABS: ANION GAP 13.2 mEq/L (7-13); CHLORIDE,CL 101 mmol/L (98-107); SODIUM,NA 140 mmol/L (136-145)
[2020-07-23] MEDS ORDERED: Sodium Chloride 0.9% 10 ML Syringe FLUSH PRN (13:23)
[2020-07-23] MEDS ORDERED: Dexamethasone 4 MG/ML SDV IVPUSH ONE (13:23)
[2020-07-23] MEDS ORDERED: Albuterol 6.7 GM Inhaler INH ONE (13:24)
[2020-07-23] MEDS ORDERED: Benzonatate 100 MG Cap PO ONE (13:24)
[2020-07-23] MEDS ORDERED: Codeine/Promethazine 10-6.25 MG/5 ML Syrup 5 ML UD Cup PO ONE (13:24)
--- NOTE | 2020-07-23 13:40 | CR ---
PROCEDURE INFORMATION: Exam: XR Chest, 1 View Exam date and time: 07/23/2020 1:28 PM Age: 59 years old Clinical indication: Cough and dyspnea and fever; Additional info: Fever, cough, dyspnea, covid positive TECHNIQUE: Imaging protocol: XR of the chest Views: 1 view. COMPARISON: CR Chest 2V 01/29/2018 10:20 PM FINDINGS: Lungs: There is some peripheral airspace opacity in the left mid to lower lung zone as well as patchy density in the right lower lobe. Given the patient's known COVID-19 positivity, this could represent COVID-19 pneumonia. There is no pulmonary edema. Pleural space: There is no pleural effusion or pneumothorax. Heart/Mediastinum: Unremarkable. No cardiomegaly. Bones/joints: Unremarkable. IMPRESSION: Patchy airspace density in both lungs. Findings could represent early COVID-19 pneumonia.
[2020-07-23] MEDS ORDERED: Ondansetron 4 MG/2 ML SDV IV ONE (13:44)
[2020-07-23 14:48] VITALS: BP 139/92; PULSE 88
== END 2020-07-23 14:21 | disposition home or self-care (01) ==
LOC: DL.ED 12:17
DX: U07.1 COVID-19 (principal); E11.9 Type 2 diabetes mellitus without complications; Z88.8 Allergy status to other drugs, medicaments and biological substances; Z79.4 Long term (current) use of insulin; Z90.49 Acquired absence of other specified parts of digestive tract
CPT/HCPCS: 36415; 71045; 80053; 82728; 83605; 83615; 83880; 84484; 85025; 85379; 85610; 85730; 86140; 87081; 87430; 87635; 87804; 96374; 96375; 99284; A9270; J1100; J2405; U0002

== ENCOUNTER 2020-08-08 12:26 | Inpatient (IN) | payer OTHER ==
[2020-08-08] MEDS ORDERED: oxyCODONE 5 MG Tab PO PRN (13:41)
[2020-08-08] MEDS ORDERED: Ondansetron 4 MG Tab.DIS PO PRN (13:41)
[2020-08-08] MEDS ORDERED: Docusate Sodium 100 MG Cap PO PRN (13:41)
[2020-08-08] MEDS ORDERED: HYDROmorphone 1 MG/ML Syringe IVPUSH PRN (13:41)
[2020-08-08] MEDS ORDERED: Ondansetron 4 MG/2 ML SDV IVPUSH PRN (13:41)
[2020-08-08] MEDS ORDERED: 50% Dextrose in Water 50 ML Syringe IV PRN (13:47)
[2020-08-08] MEDS ORDERED: Glucagon,Human Recombinant 1 MG Vial IM PRN (13:47)
--- NOTE | 2020-08-08 14:45 | HP ---
CHIEF COMPLAINT: Abdominal pain. HISTORY OF PRESENT ILLNESS: The patient is a 59-year-old gentleman who was admitted directly from [facility] because of abdominal pain that has been going on and off for couple of months and lately has gotten worse, and he described the abdominal pain as dull, radiating to his right side. He denies though any diarrhea, fever, chills, dysuria, or any other associated symptoms. Lab workup done at the clinic showed a lipase of 818. Because of this and signs and symptoms of acute pancreatitis, the patient was admitted for further evaluation and management. PAST MEDICAL HISTORY: Remarkable for diabetes mellitus on insulin as well as Trulicity and also dyslipidemia. SOCIAL HISTORY: The patient is a nonsmoker. Drinks alcohol very rarely and last drink was about a month ago, about 4 beers. PAST SURGICAL HISTORY: Remarkable for cholecystectomy. REVIEW OF SYSTEMS: As in HPI. The rest of the review of systems is negative. HOME MEDICATIONS: Simvastatin 40 mg at bedtime, Humalog 20 units 3 times a day with meals, Lantus 34 units at bedtime, and Trulicity 0.75 mg subcu weekly. ALLERGIES: No known drug allergies. PHYSICAL EXAMINATION: General: The patient is alert and oriented, ambulatory, not in any acute distress. Vital Signs: Blood pressure is 123/83, pulse of 68, respiration of 16, temperature of 96.8. SHEENT: Normocephalic. There are pink palpebral conjunctivae. Sclerae anicteric. Neck: No JVD. No lymphadenopathy. Heart: Regular rate and rhythm. Normal S1 and S2. No gallops. No rubs. Lungs: Equal bilaterally. No crackles. No wheezing. Abdomen: Soft. There is mild direct tenderness on the epigastric area. No rebound. Bowel sounds positive. Extremities: Negative for any pedal edema. No calf tenderness. LABORATORY DATA: Lab workup done at [facility]. Abdominal x-ray dated 08/08/2020 showed moderate amount of stool and gas scattered throughout the normal caliber of the colon and a few gas-distended mildly dilated segments of the small bowel, otherwise unremarkable. Again, lipase is 818. CBC is unremarkable. Urinalysis is remarkable for 500 mg/dL of glucose and otherwise unremarkable. Comp panel; BUN is 20, glucose is 140, albumin is 3.1, ALT of 56. The rest of the panel unremarkable. ADMITTING DIAGNOSES: 1. Acute pancreatitis. 2. Diabetes mellitus, insulin dependent. 3. Recent COVID infection (3 weeks ago). TREATMENT PLAN: The patient is going to be admitted to Acute Care General Medicine floor. He will be on clear-liquid diet. He will be kept n.p.o. His Trulicity is going to be discontinued because this might have caused his acute pancreatitis and he will be on sliding scale insulin and the rest of the management as necessary. The patient is a full code. [facility] /[id number]
[2020-08-08] MEDS: Sodium Chloride 0.9% 1,000 ML IV SCH (14:59)
[2020-08-08] MEDS: Pantoprazole 40 MG Vial IVPUSH SCH ×2 (16:30→21:36)
[2020-08-08] MEDS: Insulin Lispro 100 Units/ML 3 ML Vial SUBCUT SCH (17:18)
[2020-08-08] MEDS: Acetaminophen 325 MG Tab PO PRN (21:44)
[2020-08-09] MEDS: Sodium Chloride 0.9% 1,000 ML IV SCH ×2 (00:39→08:38)
[2020-08-09] MEDS: Acetaminophen 325 MG Tab PO PRN (08:27)
[2020-08-09] MEDS: Pantoprazole 40 MG Vial IVPUSH SCH (08:30)
[2020-08-09] MEDS: Insulin Lispro 100 Units/ML 3 ML Vial SUBCUT SCH ×2 (08:36→12:52)
--- NOTE | 2020-08-09 08:52 | PN ---
DATE: 08/09/2020 SUBJECTIVE: The patient is doing well. Appetite is slowly picking up and abdominal pain is slightly better this morning. The patient denies any chest pain, shortness of breath, nausea, vomiting, nor any other complaints. LABORATORY DATA: Lab workup this morning, glucose is 136, sodium 141, potassium is 4.8, chloride is 106, albumin is 2.4. CBC; WBC 4.6, hemoglobin is 12.4, hematocrit is 37.5, platelet is 150. OBJECTIVE: Vital Signs: Blood pressure is 154/75, pulse of 56, respirations 20, temperature of 97.6, saturation is 99% on room air. Heart: Regular rate and rhythm. Normal S1 and S2. No gallops. No rubs. Lungs: Equal bilaterally. No crackles, no wheezing. Abdomen: Soft. There is still some mild direct tenderness in the epigastric area. No rebound. Bowel sounds positive. Extremities: Negative for any pedal edema. No calf tenderness. MEDICATIONS: Reviewed. PLAN: I am going to advance his diet to consistent carbohydrate diet and see how he does and if he continues to do well and is tolerating the regular diet, anticipate discharge in a day or two. [facility] /[id number]
[2020-08-09] MEDS ORDERED: Enoxaparin 40 MG/0.4 ML Syringe SUBCUT SCH (09:00)
[2020-08-09 10:40] LABS: ANION GAP 7.8 mEq/L (7-13); CHLORIDE,CL 106 mmol/L (98-107); SODIUM,NA 141 mmol/L (136-145)
[2020-08-09 13:21] VITALS: BP 152/73; PULSE 57
--- NOTE | 2020-08-09 15:13 | DISCH ---
FINAL DIAGNOSES: 1. Acute pancreatitis. 2. Diabetes mellitus, insulin dependent. 3. Recent COVID infection. BRIEF HISTORY OF PRESENT ILLNESS: See H and P. PERTINENT LABS, X-RAY AND OTHER TESTS ON ADMISSION: See H and P. HOSPITAL COURSE: The patient was admitted to General Medicine floor. He was started on IV antibiotics, clear liquid diet, was placed on deep vein thrombosis prophylaxis and was also given pain medication as well as Protonix IV. The patient did well with the above regimen. The patient's abdominal pain improved and now he is able to tolerate the regular diet. The patient was subsequently discharged. Condition on discharge improved. Followup lipase level is 249 which is now within normal limits. The patient is going to be resumed on all his medications except for Trulicity, which might have caused his acute pancreatitis. I will see him for followup in the clinic in 7 to 10 days. [facility] /[id number]
== END 2020-08-09 14:50 | disposition home or self-care (01) | DRG 440 ==
LOC: DL.MS 12:34
PROVIDERS: ADMIT Internal Medicine; ATTEND Internal Medicine
DX: K85.90 Acute pancreatitis without necrosis or infection, unspecified (principal); E11.9 Type 2 diabetes mellitus without complications; E78.5 Hyperlipidemia, unspecified; Z90.49 Acquired absence of other specified parts of digestive tract; Z79.4 Long term (current) use of insulin; Z86.19 Personal history of other infectious and parasitic diseases; Z79.899 Other long term (current) drug therapy
CPT/HCPCS: 36415; 80053; 82962; 83690; 85027; A9270-GY; C9113; J1815-GY; J7030